=== PATIENT | female | born 1940 | race Caucasian/White ===

== ENCOUNTER 2023-11-08 15:54 | Inpatient (IN) | payer BC, OTHER ==
[2023-11-08 16:35] VITALS: BMI 43.0
[2023-11-08] MEDS: SODIUM CHLORIDE 1,000 ML IV SCH (16:38)
[2023-11-08] MEDS ORDERED: DEXTROSE 50%-WATER 25 GM/50 ML DISP.SYRIN ONE (16:41)
[2023-11-08] MEDS: DEXTROSE 50%-WATER - 25 GM/50 ML VIAL IVPUSH ONE (16:43)
[2023-11-08 16:51] LABS: BASO % 0.1 % (0-2.0); EOS % 1.1 % (0-4.5); HEMATOCRIT 30.2 % (32.4-45.2); HEMOGLOBIN 9.9 GM/dL (10.7-15.3); LYMPH % 17.3 % (8-40); MCH 31.5 pg (25.7-33.7); MCHC 32.8 g/dl (32.0-36.0); NEUT % 76.5 % (42.8-82.8); PLATELET COUNT 129 10^3/uL (134-434); RBC 3.15 M/mm3 (3.60-5.2); RDW 18.5 % (11.6-15.6); WHITE BLOOD COUNT 5.3 K/mm3 (4.0-10.0)
[2023-11-08 16:54] LABS: INR 0.99 (0.83-1.09); PROTHROMBIN TIME (PATIENT) 11.2 SEC (9.7-13.0)
[2023-11-08 16:57] LABS: ACTIVATED PTT 43.1 SECONDS (25.2-36.5)
[2023-11-08 17:06] LABS: POTASSIUM 5.3 mmol/L (3.5-5.1)
[2023-11-08 17:07] LABS: CALCIUM 8.7 mg/dL (8.5-10.1)
[2023-11-08 17:08] LABS: ALBUMIN 2.6 g/dl (3.4-5.0)
[2023-11-08 17:09] LABS: BLOOD UREA NITROGEN 27.2 mg/dL (7-18)
[2023-11-08 17:11] LABS: CREATININE 0.7 mg/dL (0.55-1.3)
[2023-11-08 17:13] LABS: TOT PROT 6.2 g/dl (6.4-8.2)
[2023-11-08 17:14] LABS: BILIRUBIN,TOTAL 0.8 mg/dL (0.2-1)
[2023-11-08 20:00] LABS: EPI CELLS 10 /uL (0-25.1); HYALINE CASTS 4 /uL (0-3.1); PH,URINE >= 9.0 (5.0-8.0); URINE APPEARANCE CLOUDY; URINE BACTERIA >9,000 /uL (0-1359); URINE BILIRUBIN NEGATIVE (NEGATIVE); URINE COLOR ORANGE; URINE GLUCOSE (UA) NEGATIVE (NEGATIVE); URINE KETONE NEGATIVE (NEGATIVE); URINE LEUK ESTERASE 3+ (NEGATIVE); URINE NITRITE NEGATIVE (NEGATIVE); URINE PROTEIN 2+ (NEGATIVE); URINE WBC 671 /uL (0-25.8)
[2023-11-08 21:24] LABS: URINE RBC 420.4 /uL (0-23.9)
[2023-11-08 21:35] LABS: YEAST NONE SEEN (NEGATIVE)
[2023-11-09] MEDS ORDERED: DEXTROSE 5%-0.45% SALINE 1,000 ML IV SCH (02:15)
[2023-11-09] MEDS: ASPIRIN 300 MG SUPP.RECT RC ONE (03:23)
[2023-11-09] MEDS: DEXTROSE 5%-0.45% SALINE 1,000 ML IV SCH (03:36)
[2023-11-09] MEDS: CEFTRIAXONE 1 GM in DEXTROSE 5%-WATER - 100 ML IVPB ONE (07:14)
[2023-11-09 08:22] LABS: BASO % 0.1 % (0-2.0); EOS % 0.6 % (0-4.5); HEMATOCRIT 31.2 % (32.4-45.2); HEMOGLOBIN 10.4 GM/dL (10.7-15.3); LYMPH % 12.8 % (8-40); MCH 32.1 pg (25.7-33.7); MCHC 33.4 g/dl (32.0-36.0); MEAN CELL VOLUME 96.4 fl (80-96); MEAN PLT VOLUME 10.1 fl (7.5-11.1); MONO % 3.9 % (3.8-10.2); NEUT % 82.6 % (42.8-82.8); PLATELET COUNT 122 10^3/uL (134-434); RBC 3.24 M/mm3 (3.60-5.2); RDW 18.5 % (11.6-15.6); WHITE BLOOD COUNT 7.7 K/mm3 (4.0-10.0)
[2023-11-09 08:37] LABS: CALCIUM 8.9 mg/dL (8.5-10.1); MAGNESIUM 2.2 mg/dL (1.8-2.4)
[2023-11-09 08:41] LABS: CREATININE 0.7 mg/dL (0.55-1.3); PHOSPHOROUS 2.4 mg/dL (2.5-4.9)
[2023-11-09 08:45] LABS: BLOOD UREA NITROGEN 24.8 mg/dL (7-18)
[2023-11-09] MEDS ORDERED: NITROGLYCERIN 2% OINTMENT - 1GM PACKET TD ONE (10:35)
[2023-11-09] MEDS: HEPARIN NA (PORCINE) 5,000 UNITS/ML 1ML VIAL SQ SCH (12:15)
[2023-11-09] MEDS: ATORVASTATIN CA 10 MG TABLET (FP) PO SCH (22:04)
[2023-11-10] MEDS: LOSARTAN 50MG/HCTZ 12.5MG 1 TAB PO SCH (11:08)
[2023-11-10] MEDS: BUMETANIDE 1 MG TABLET PO SCH (11:09)
[2023-11-10] MEDS ORDERED: ALBUTEROL SO4 2.5/IPRATROPIUM 0.5 INH SOL 3 ML VIAL.NEB. NEB PRN (11:37)
[2023-11-11] MEDS ORDERED: DEXTROSE 50%-WATER - 25 GM/50 ML VIAL IVPUSH PRN (12:06)
[2023-11-11 12:54] LABS: ARTERIAL BLD GAS O2 SATURATION 97.1 % (95-98); ARTERIAL BLOOD GAS BASE EXCESS -1.7 mmol/L (-2-2); ARTERIAL BLOOD GAS PO2 92.4 mmHg (80-100); ARTERIAL BLOOD GAS pH 7.396 (7.350-7.450)
[2023-11-11 12:56] LABS: ALLENS TEST POSITIVE
[2023-11-11 14:20] LABS: BASO % 0.1 % (0-2.0); EOS % 0.3 % (0-4.5); HEMATOCRIT 27.7 % (32.4-45.2); HEMOGLOBIN 9.2 GM/dL (10.7-15.3); LYMPH % 12.5 % (8-40); MCH 31.5 pg (25.7-33.7); MCHC 33.4 g/dl (32.0-36.0); MEAN CELL VOLUME 94.4 fl (80-96); MEAN PLT VOLUME 10.6 fl (7.5-11.1); MONO % 5.1 % (3.8-10.2); PLATELET COUNT 101 10^3/uL (134-434); RBC 2.93 M/mm3 (3.60-5.2); RDW 18.8 % (11.6-15.6); WHITE BLOOD COUNT 4.6 K/mm3 (4.0-10.0)
[2023-11-11 14:42] LABS: POTASSIUM 4.5 mmol/L (3.5-5.1)
[2023-11-11 14:47] LABS: ALBUMIN 2.5 g/dl (3.4-5.0); BLOOD UREA NITROGEN 22.6 mg/dL (7-18)
[2023-11-11 14:50] LABS: CREATININE 0.8 mg/dL (0.55-1.3)
[2023-11-11 14:51] LABS: BILIRUBIN,TOTAL 0.5 mg/dL (0.2-1); TOT PROT 5.8 g/dl (6.4-8.2)
[2023-11-11] MEDS: FUROSEMIDE 40 MG/4 ML INJECTABLE VIAL IVPUSH SCH (16:09)
[2023-11-11] MEDS: VANCOMYCIN/WATER FOR INJ (PEG) 1,000 MG/200 ML BAG IVPB ONE (18:27)
[2023-11-12] MEDS: SODIUM CHLORIDE 1,000 ML IV SCH ×2 (06:38→22:00)
[2023-11-12] MEDS ORDERED: CEFTRIAXONE 1 GM in DEXTROSE 5%-WATER - 50 ML IVPB SCH (12:00)
[2023-11-12] MEDS: CEFTRIAXONE 2 GM in DEXTROSE 5%-WATER 100 ML IVPB SCH (16:18)
[2023-11-12] MEDS: AMINO ACIDS 4.25%/D5W 1,000 ML IV SCH (17:25)
[2023-11-12] MEDS: SODIUM CHLORIDE 250 ML IV STA (19:07)
[2023-11-12] MEDS: FAT EMULSION/OLIVE/SOY/PHOSPHO 250 ML IV SCH (21:38)
[2023-11-12] MEDS ORDERED: FAT EMULSION/OLIVE/SOY (CLINOLIPID) 250 ML EMULSION IV SCH (22:00)
[2023-11-14 07:37] LABS: BASO % 0.2 % (0-2.0); EOS % 0.9 % (0-4.5); HEMATOCRIT 26.8 % (32.4-45.2); HEMOGLOBIN 9.1 GM/dL (10.7-15.3); LYMPH % 11.3 % (8-40); MCH 32.3 pg (25.7-33.7); MCHC 33.9 g/dl (32.0-36.0); MEAN CELL VOLUME 95.2 fl (80-96); MEAN PLT VOLUME 10.7 fl (7.5-11.1); MONO % 3.6 % (3.8-10.2); PLATELET COUNT 91 10^3/uL (134-434); RBC 2.81 M/mm3 (3.60-5.2); RDW 18.5 % (11.6-15.6); WHITE BLOOD COUNT 8.5 K/mm3 (4.0-10.0)
[2023-11-14 07:51] LABS: POTASSIUM 3.2 mmol/L (3.5-5.1)
[2023-11-14 07:56] LABS: ALBUMIN 2.3 g/dl (3.4-5.0); CALCIUM 8.8 mg/dL (8.5-10.1)
[2023-11-14 07:59] LABS: CREATININE 1.2 mg/dL (0.55-1.3)
[2023-11-14 08:00] LABS: BILIRUBIN,TOTAL 0.4 mg/dL (0.2-1); TOT PROT 5.6 g/dl (6.4-8.2)
[2023-11-14] MEDS ORDERED: FLUTICASONE/UMECLIDIN/VILANTER(200-62.5-25 TRELEGY ELLIPTA) INAHLER IH SCH (12:30)
[2023-11-14] MEDS: KCL 10 MEQ IVPB 10 MEQ/100 ML INFUS.BAG IVPB SCH (13:13)
[2023-11-17 08:44] LABS: BASO % 0.3 % (0-2.0); EOS % 2.2 % (0-4.5); HEMATOCRIT 27.9 % (32.4-45.2); HEMOGLOBIN 9.4 GM/dL (10.7-15.3); LYMPH % 10.4 % (8-40); MCH 32.2 pg (25.7-33.7); MCHC 33.8 g/dl (32.0-36.0); MEAN CELL VOLUME 95.4 fl (80-96); MONO % 5.9 % (3.8-10.2); NEUT % 81.2 % (42.8-82.8); PLATELET COUNT 160 10^3/uL (134-434); RBC 2.92 M/mm3 (3.60-5.2); WHITE BLOOD COUNT 10.4 K/mm3 (4.0-10.0)
[2023-11-17 09:07] LABS: CHLORIDE 105 mmol/L (98-107); SODIUM 141 mmol/L (136-145)
[2023-11-17 09:12] LABS: ALBUMIN 2.3 g/dl (3.4-5.0); BLOOD UREA NITROGEN 49.2 mg/dL (7-18); CALCIUM 8.9 mg/dL (8.5-10.1); CO2 30 mmol/L (21-32); GLUCOSE,RANDOM 86 mg/dL (74-106)
[2023-11-17 09:15] LABS: CREATININE 0.9 mg/dL (0.55-1.3); SGOT/AST 18 U/L (15-37); SGPT/ALT 19 U/L (13-61)
[2023-11-17 09:17] LABS: BILIRUBIN,TOTAL 0.6 mg/dL (0.2-1); TOT PROT 5.9 g/dl (6.4-8.2)
[2023-11-17 09:18] LABS: ALK PHOS 95 U/L (45-117)
[2023-11-17 11:22] LABS: ANION GAP 7 mmol/L (4-13); POTASSIUM 2.3 mmol/L (3.5-5.1)
[2023-11-17] MEDS: KCL 10 MEQ IVPB 10 MEQ/100 ML INFUS.BAG IVPB SCH ×2 (13:12→20:42)
[2023-11-17] MEDS: POTASSIUM CHLORIDE ORAL LIQUID 20 MEQ/15 ML PO ONE (13:56)
[2023-11-17 17:44] LABS: CHLORIDE 104 mmol/L (98-107); SODIUM 141 mmol/L (136-145)
[2023-11-17 17:45] LABS: CALCIUM 8.5 mg/dL (8.5-10.1); POTASSIUM 2.7 mmol/L (3.5-5.1)
[2023-11-17 17:46] LABS: ANION GAP 8 mmol/L (4-13); CO2 29 mmol/L (21-32); GLUCOSE,RANDOM 102 mg/dL (74-106)
[2023-11-17 17:49] LABS: CREATININE 0.8 mg/dL (0.55-1.3)
[2023-11-18 08:45] LABS: BASO % 0.2 % (0-2.0); HEMATOCRIT 28.6 % (32.4-45.2); HEMOGLOBIN 9.6 GM/dL (10.7-15.3); LYMPH % 11.8 % (8-40); MCH 31.7 pg (25.7-33.7); MCHC 33.5 g/dl (32.0-36.0); MEAN CELL VOLUME 94.5 fl (80-96); MEAN PLT VOLUME 10.1 fl (7.5-11.1); MONO % 4.9 % (3.8-10.2); NEUT % 80.1 % (42.8-82.8); PLATELET COUNT 156 10^3/uL (134-434); RBC 3.03 M/mm3 (3.60-5.2); RDW 17.7 % (11.6-15.6); WHITE BLOOD COUNT 11.5 K/mm3 (4.0-10.0)
[2023-11-18 09:05] LABS: POTASSIUM 3.1 mmol/L (3.5-5.1)
[2023-11-18 09:09] LABS: ALBUMIN 2.3 g/dl (3.4-5.0); BLOOD UREA NITROGEN 53.1 mg/dL (7-18); CALCIUM 8.6 mg/dL (8.5-10.1)
[2023-11-18 09:12] LABS: CREATININE 0.8 mg/dL (0.55-1.3)
[2023-11-18 09:14] LABS: BILIRUBIN,TOTAL 0.6 mg/dL (0.2-1)
[2023-11-18] MEDS: KCL 10 MEQ IVPB 10 MEQ/100 ML INFUS.BAG IVPB SCH (10:53)
[2023-11-19 09:46] LABS: ALBUMIN 2.2 g/dl (3.4-5.0); BLOOD UREA NITROGEN 61.3 mg/dL (7-18); CALCIUM 8.4 mg/dL (8.5-10.1)
[2023-11-19 09:49] LABS: CREATININE 0.9 mg/dL (0.55-1.3)
[2023-11-19 09:50] LABS: BILIRUBIN,TOTAL 0.5 mg/dL (0.2-1); TOT PROT 5.6 g/dl (6.4-8.2)
[2023-11-19] MEDS: D5-1/2NS+20 MEQ KCL - 20 MEQ/1,000 ML INFUS.BAG IV SCH (11:38)
[2023-11-19 17:06] LABS: BASO % 0.1 % (0-2.0); EOS % 2.7 % (0-4.5); HEMATOCRIT 26.7 % (32.4-45.2); HEMOGLOBIN 9.1 GM/dL (10.7-15.3); LYMPH % 10.7 % (8-40); MEAN CELL VOLUME 94.2 fl (80-96); MEAN PLT VOLUME 9.4 fl (7.5-11.1); MONO % 5.6 % (3.8-10.2); NEUT % 80.9 % (42.8-82.8); PLATELET COUNT 184 10^3/uL (134-434); RBC 2.83 M/mm3 (3.60-5.2); RDW 17.8 % (11.6-15.6); WHITE BLOOD COUNT 8.5 K/mm3 (4.0-10.0)
[2023-11-20 09:03] LABS: BASO % 0.1 % (0-2.0); EOS % 2.8 % (0-4.5); HEMATOCRIT 25.3 % (32.4-45.2); HEMOGLOBIN 8.6 GM/dL (10.7-15.3); LYMPH % 13.4 % (8-40); MCH 32.2 pg (25.7-33.7); MCHC 33.9 g/dl (32.0-36.0); MEAN PLT VOLUME 9.5 fl (7.5-11.1); MONO % 6.6 % (3.8-10.2); NEUT % 77.1 % (42.8-82.8); PLATELET COUNT 228 10^3/uL (134-434); RBC 2.67 M/mm3 (3.60-5.2); RDW 17.6 % (11.6-15.6); WHITE BLOOD COUNT 7.7 K/mm3 (4.0-10.0)
[2023-11-20 09:19] LABS: POTASSIUM 3.2 mmol/L (3.5-5.1)
[2023-11-20 09:21] LABS: CALCIUM 8.5 mg/dL (8.5-10.1)
[2023-11-20 09:22] LABS: ALBUMIN 2.2 g/dl (3.4-5.0); BLOOD UREA NITROGEN 51.5 mg/dL (7-18)
[2023-11-20 09:25] LABS: CREATININE 0.8 mg/dL (0.55-1.3)
[2023-11-20 09:26] LABS: BILIRUBIN,TOTAL 0.5 mg/dL (0.2-1)
[2023-11-20 09:27] LABS: TOT PROT 5.6 g/dl (6.4-8.2)
[2023-11-23 14:57] VITALS: RESP 18
[2023-11-26 06:15] VITALS: BP 107/81; PULSE 53; TEMP 98.1
== END 2023-11-26 11:45 | DRG 871 ==
LOC: JER 15:54 → JERBED 19:37 → J4S 11-09 09:15 → OBSVTOIN 11-11 12:29
PROVIDERS: ADMIT Internal Medicine; ATTEND Internal Medicine
DX: A41.89 Other specified sepsis (principal); R53.2 Functional quadriplegia; N39.0 Urinary tract infection, site not specified; Z68.41 Body mass index [BMI] 40.0-44.9, adult; I10 Essential (primary) hypertension; E78.5 Hyperlipidemia, unspecified; B96.4 Proteus (mirabilis) (morganii) as the cause of diseases classified elsewhere; E66.01 Morbid (severe) obesity due to excess calories; F32.A Depression, unspecified; R13.10 Dysphagia, unspecified; F03.90 Unspecified dementia, unspecified severity, without behavioral disturbance, psychotic disturbance, mood disturbance, and anxiety; I65.29 Occlusion and stenosis of unspecified carotid artery; I89.0 Lymphedema, not elsewhere classified; R68.0 Hypothermia, not associated with low environmental temperature; Z78.9 Other specified health status
CPT/HCPCS: 0241U-QW; 36415; 36600; 70450-TC; 71045-TC-FY; 80048; 80053; 80061; 81003; 82140; 82533; 82550; 82803; 82962; 83036; 83605; 83735; 83880; 84100; 84436; 84443; 84484; 85025; 85610; 85730; 86850; 86900; 86901; 87040; 87086; 87186; 87635; 93005; 93010; 99285-25; G0378; J1644